=== PATIENT | female | born 2000 | race African-American/Black ===

== ENCOUNTER 2021-05-19 23:21 | Emergency (ER) | payer OTHER ==
[~2021-05-19] VITALS: Ht 162.6 cm; Wt 84.4 kg
[2021-05-19] MEDS ORDERED: ALBUTEROL2.5 MG/0.1 INH (23:31)
[2021-05-19] MEDS ORDERED: METRONIDAZOLE500 M4 PO (23:31)
[2021-05-20 00:14] LABS: URINE BILIRUBIN NEGATIVE (Negative); URINE BLOOD TRACE (Negative); URINE CLARITY CLEAR; URINE COLOR YELLOW; URINE GLUCOSE-RANDOM* NEGATIVE (Negative); URINE KETONES NEGATIVE (Negative); URINE LEUKOCYTES-REFLEX NEGATIVE (Negative); URINE NITRITE-REFLEX NEGATIVE (Negative); URINE PROTEIN (DIPSTICK) NEGATIVE (Negative); URINE UROBILINOGEN 0.2 E.U./dl (0.2-1.0)
[2021-05-20] MEDS ORDERED: DOXYCYCLINE 10100 MG PO (01:23)
[2021-05-20 02:24] VITALS: BP 135/79
== END 2021-05-20 00:12 | disposition home or self-care (01) ==
LOC: ER 23:21
PROVIDERS: Emergency Medicine
DX: N89.8 Other specified noninflammatory disorders of vagina (principal); J45.909 Unspecified asthma, uncomplicated; Z88.1 Allergy status to other antibiotic agents; Z91.013 Allergy to seafood; Z79.899 Other long term (current) drug therapy